=== PATIENT | female | born 1935 | race American Indian/Alaskan Native ===

== ENCOUNTER 2020-05-18 11:41 | Outpatient (CLI) | payer MEDICARE ==
--- NOTE | 2020-05-18 14:39 | Mammography Report ---
DIGITAL DIAGNOSTIC MAMMOGRAM WITH CAD CONVENTIONAL, 05/18/2020 CLINICAL INFORMATION / INDICATION: Postbiopsy clip placement TECHNIQUE: Digital right mammographic imaging was performed. This examination was interpreted with the benefit of Computer-aided Detection analysis. COMPARISON: None available FINDINGS: Breast Density: There are scattered areas of fibroglandular density. A huge lobular mass is partially imaged in the far posterior medial right breast at approximately 4:0 0 measuring at least 6.3 cm in diameter. A biopsy clip is seen within this mass. IMPRESSION: Huge right breast mass with biopsy clip Follow up recommendation: Per biopsy results Post biopsy imaging. A "normal" or negative report should not discourage follow up or biopsy of a clinically significant f inding. A written summary of these findings will be mailed to the patient. The patient will be entered into a mammography reporting system which will generate a reminder letter for the patient's next appointmen t at the appropriate interval. According to the [employer], yearly mammograms are recommended starting at age 40 and continuing as long as a woman is in good health. Breast MRI is recommended for women with an paula roximately 20-25% or greater lifetime risk of breast cancer, including women with a strong family his tory of breast or ovarian cancer and women who have been treated for Hodgkin's disease. Signer Name: Liang Adorno MD Signed: 05/18/2020 2:34 PM Workstation Name: [id number]
== END 2020-05-18 11:42 | disposition home or self-care (01) ==
LOC: SPVWC 11:41
PROVIDERS: ATTEND Surgery
DX: N63.10 Unspecified lump in the right breast, unspecified quadrant (principal); R92.2 Inconclusive mammogram; Z97.8 Presence of other specified devices

== ENCOUNTER 2020-05-19 08:37 | Outpatient (CLI) | payer MEDICARE | END 2020-05-19 08:38 | disposition home or self-care (01) | LOC: LABHHL 08:37 | PROVIDERS: ATTEND Surgery | DX: N63.14 Unspecified lump in the right breast, lower inner quadrant (principal); C50.311 Malignant neoplasm of lower-inner quadrant of right female breast | CPT/HCPCS: 88305; 88341; 88342 ==

== ENCOUNTER 2020-06-06 12:03 | Outpatient (CLI) | payer MEDICARE ==
--- NOTE | 2020-06-06 13:26 | Ultrasound Report ---
ULTRASOUND BREAST RIGHT COMPLETE, 06/06/2020 CLINICAL INFORMATION / INDICATION: ABNORMAL MAMMO. TECHNIQUE: Complete sonographic evaluation of all 4 quadrants and retroareolar region was performed. COMPARISON: Right breast mammogram 05/18/20. FINDINGS: There is a 6.3 cm lobulated, heterogeneous solid mass at the 3:00 position 5 cm from the nipple which corresponds to the site of the patient's palpable and mammographically detected mass. No posterior f eatures are seen. There is mild internal vascularity on Doppler exam. There is an associated biopsy c lip. There is a benign-appearing lymph node in the right axilla measuring 7.4 mm short axis. No cortical t hickening is seen. IMPRESSION: 6.3 cm heterogeneous solid mass in the right medial breast corresponds to the site of the patient's palpable and mammographically detected abnormality. Correlation with pathology is recommen ded. Follow up recommendation: Surgical consult BI-RADS Category 5: Highly Suggestive of Malignancy. A normal or "negative" report should not preclude biopsy or follow-up of a clinically suspicious find ing. Signer Name: Fernando Greene MD Signed: 06/06/2020 1:21 PM Workstation Name: [id number]
== END 2020-06-06 12:04 | disposition home or self-care (01) ==
LOC: SPVWC 12:03
PROVIDERS: ATTEND Surgery
DX: C50.411 Malignant neoplasm of upper-outer quadrant of right female breast (principal); N63.12 Unspecified lump in the right breast, upper inner quadrant

== ENCOUNTER 2020-07-07 13:40 | Outpatient (CLI) | payer MEDICARE ==
--- NOTE | 2020-07-07 16:06 | Mammography Report ---
DEXA BONE DENSITY SCAN INDICATION / CLINICAL INFORMATION: MALIGNANT NEOPLASM OF RIGHT BREAST. 85 years Female COMPARISON: None available. LUMBAR SPINE, L1-L4: - Bone mineral density (BMD) = 1.155 g/cm2. - T-score = 1.0 - Z-score = 3.8 Change (%) since most recent prior (if available): None available. LEFT HIP, NECK : - Bone mineral density (BMD) = 0.773 g/cm2. - T-score = -0.7 - Z-score = 1.8 Change (%) since most recent prior (if available): None available. IMPRESSION: 1. WHO Classification: Normal bone density. Fracture Risk: Not Increased. BMD Reporting Guidelines (ISCD, 2015) BMD Reporting in Postmenopausal Women and in Men Age 50 and Older * T-scores are preferred. * The WHO densitometric classification is applicable. BMD Reporting in Females Prior to Menopause and in Males Younger Than Age 50 * Z-scores, not T-scores, are preferred. This is particularly important in children. * A Z-score of -2.0 or lower is defined as below the expected range for age, and a Z-score above -2. 0 is within the expected range for age. * Osteoporosis cannot be diagnosed in men under age 50 on the basis of BMD alone. * The WHO diagnostic criteria may be applied to women in the menopausal transition. http://www.iscd.org/official-positions/8019-gyhf-zvpjkzhj-positions-adult/ Signer Name: Tate Berkowitz MD Signed: 07/07/2020 4:02 PM Workstation Name: [id number]
== END 2020-07-07 13:41 | disposition home or self-care (01) ==
LOC: SPVWC 13:40
PROVIDERS: ATTEND Internal Medicine Hematology & Oncology
DX: Z13.820 Encounter for screening for osteoporosis (principal); C50.311 Malignant neoplasm of lower-inner quadrant of right female breast; E11.9 Type 2 diabetes mellitus without complications; Z78.0 Asymptomatic menopausal state
CPT/HCPCS: 77080

== ENCOUNTER 2020-10-04 08:23 | Outpatient (CLI) | payer MEDICARE ==
--- NOTE | 2020-10-04 14:12 | Mammography Report ---
RIGHT DIGITAL DIAGNOSTIC MAMMOGRAM WITH CAD CONVENTIONAL, 10/04/2020 RIGHT COMPLETE BREAST ULTRASOUND CLINICAL INFORMATION / INDICATION: Patient presents for follow-up of known right breast cancer, on ch emotherapy. BREAST CA C50.312 TECHNIQUE: Digital right mammographic imaging was performed. Complete ultrasound of all four (4) quad rants was performed. This examination was interpreted with the benefit of Computer-Aided Detection (C AD) analysis. COMPARISON: Prior mammogram 05/18/2020 and right breast ultrasound 06/06/2020 FINDINGS: Breast Density: There are scattered areas of fibroglandular density. MAMMOGRAPHIC FINDINGS: There has been no significant change of a round mass in the posterior lower in ner quadrant of the right breast compatible with biopsy-proven malignancy, currently measuring up to 6.0 cm, previously 6.3 cm. No additional suspicious masses or calcification in the right breast. ULTRASOUND FINDINGS: Targeted ultrasound evaluation was performed of the area of interest. A round heterogeneous mass in the right breast 3:00 position located 5 cm from the nipple is not appreciably changed compared with prior examination, currently measuring up to approximately 5.5 x 3.8 x 5.5 cm, previously 6.3 x 4.2 x 4.3 cm. No additional suspicious lesions identified in the right breast. Morph ologically normal lymph nodes are seen in the right axilla. IMPRESSION: 1. A large mass compatible with biopsy-proven malignancy in the right breast is not significantly gatito nged compared with prior examination. Follow up recommendation: No recall. Continued follow-up as per Dr. Barrios. BI-RADS Category 6: Known Biopsy-Proven Malignancy. A "normal" or negative report should not discourage follow up or biopsy of a clinically significant f inding. A written summary of these findings will be mailed to the patient. The patient will be entered into a mammography reporting system which will generate a reminder letter for the patient's next appointmen t at the appropriate interval. According to the [employer], yearly mammograms are recommended starting at age 40 and continuing as long as a woman is in good health. Breast MRI is recommended for women with an paula roximately 20-25% or greater lifetime risk of breast cancer, including women with a strong family his tory of breast or ovarian cancer and women who have been treated for Hodgkin's disease. Signer Name: Scarlet Damian MD Signed: 10/04/2020 10:06 AM Workstation Name: [email or web address]
== END 2020-10-04 08:24 | disposition home or self-care (01) ==
LOC: SPVWC 08:23
PROVIDERS: ATTEND Surgery
DX: C50.312 Malignant neoplasm of lower-inner quadrant of left female breast (principal); N63.41 Unspecified lump in right breast, subareolar

== ENCOUNTER 2021-01-03 15:05 | Outpatient (CLI) | payer MEDICARE ==
--- NOTE | 2021-01-03 17:46 | Ultrasound Report ---
RIGHT DIGITAL DIAGNOSTIC MAMMOGRAM WITH CAD , 01/03/2021 RIGHT COMPLETE BREAST ULTRASOUND CLINICAL INFORMATION / INDICATION: Patient is currently receiving neoadjuvant chemotherapy for right breast cancer. This is a follow-up exam to assess response. TECHNIQUE: Digital right mammographic imaging was performed. Complete ultrasound of all four (4) quad rants was performed. This examination was interpreted with the benefit of Computer-Aided Detection (C AD) analysis. COMPARISON: Prior right mammogram and ultrasound 10/04/2020 FINDINGS: Breast Density: There are scattered areas of fibroglandular density. MAMMOGRAPHIC FINDINGS: There continues to be the presence of a large hyperdense mass in the lower inn er quadrant of the right breast, as noted on prior exams. Mammographically, there has not been a sign ificant interval change in size or appearance. A biopsy clip is visible within the mass. The remainde r of the right breast is unremarkable other than benign vascular calcifications. ULTRASOUND FINDINGS: Complete sonographic evaluation of all 4 quadrants and retroareolar region was p erformed. Sonographic evaluation of the right breast continues to demonstrate a large malignant mas s in the medial right breast measuring approximately 4.8 x 3.7 x 5.9 cm. This has shown some slight i nterval decrease in size compared with prior imaging studies. Morphologically normal lymph nodes are present within the right axilla. IMPRESSION: Biopsy-proven breast carcinoma in the medial right breast has decreased in size slightly since prior exam. On today's exam, the carcinoma measures 4.8 x 3.7 x 5.9 cm, previously having measu red 5.5 x 3.8 x 5.5 cm. Follow up recommendation: Continued surgical consultation. BI-RADS Category 6: Known Biopsy-Proven Malignancy. A "normal" or negative report should not discourage follow up or biopsy of a clinically significant f inding. A written summary of these findings will be mailed to the patient. The patient will be entered into a mammography reporting system which will generate a reminder letter for the patient's next appointmen t at the appropriate interval. According to the [employer], yearly mammograms are recommended starting at age 40 and continuing as long as a woman is in good health. Breast MRI is recommended for women with an paula roximately 20-25% or greater lifetime risk of breast cancer, including women with a strong family his tory of breast or ovarian cancer and women who have been treated for Hodgkin's disease. Signer Name: Inga Auguste MD Signed: 01/03/2021 5:42 PM Workstation Name: [id number]
== END 2021-01-03 15:06 | disposition home or self-care (01) ==
LOC: SPVWC 15:05
PROVIDERS: ATTEND Surgery
DX: C50.311 Malignant neoplasm of lower-inner quadrant of right female breast (principal); C50.312 Malignant neoplasm of lower-inner quadrant of left female breast

== ENCOUNTER 2021-01-31 06:23 | Day surgery (SDC) | payer MEDICARE ==
--- NOTE | 2021-01-24 15:36 | Anesthesia Consultation ---
Anesthesia Consult and Med Hx Date of service: 01/31/21 - Airway Anesthetic Teeth Evaluation: Dentures (Upper) ROM Head & Neck: Adequate Mental/Hyoid Distance: Adequate Mallampati Class: Class II Intubation Access Assessment: Good - Pre-Operative Health Status ASA Pre-Surgery Classification: ASA3 Proposed Anesthetic Plan: General Nerve Block: ES/PECS - Pulmonary Hx Smoking: No - Cardiovascular System Hx Hypertension: Yes (Cardiac records on chart reviewed) Hx Coronary Artery Disease: Yes - Central Nervous System Hx Psychiatric Problems: Yes (Anxiety) - Gastrointestinal Hx Gastroesophageal Reflux Disease: No - Endocrine Hx Renal Disease: Yes Hx End Stage Renal Disease: Yes Hx Non-Insulin Dependent Diabetes: Yes - Hematic Hx Sickle Cell Disease: No - Other Systems Hx Alcohol Use: No Hx Substance Use: No Hx Cancer: Yes Hx Obesity: No
[~2021-01-31 06:23] MED LIST: ACETAMINOPHEN 325 MG TAB PO NR; CELECOXIB 200 MG CAP PO NR; LACTATED RINGERS 1,000 ML IV SCH; MAGNESIUM OXIDE 400 MG TAB PO NR; MIDAZOLAM 2 MG/2 ML INJ IV NR; ceFAZolin/STERILE WATER 2 GM/20 ML SYRINGE IV NR; fentaNYL 100 MCG/2 ML INJ IV NR
[2021-01-31] MEDS ORDERED: propofoL 200 MG/20 ML VIAL IV ONE (07:11)
[2021-01-31] MEDS ORDERED: fentaNYL 100 MCG/2 ML INJ ONE (07:11)
[2021-01-31] MEDS ORDERED: LIDOCAINE MPF (2%) 20 MG/1 ML VIAL 5 ML ONE (07:11)
--- NOTE | 2021-01-31 07:23 | Anesthesia Day of Surgery ---
Anesthesia Day of Surgery - Day of Surgery Patient Examined: Yes Patient H&P Reviewed: Yes Patient is NPO: Yes Beta Blockers: Yes (metoprolol) Cardiac Clearance: Yes
[2021-01-31] MEDS ORDERED: BUPIVACAINE/PF (0.5%) 5 MG/1 ML 30 ML VIAL INFILTRATI ONE (07:32)
[2021-01-31] MEDS ORDERED: dexAMETHasone 4 MG/ML VIAL ONE (07:32)
[2021-01-31 07:45] LABS: Hematocrit 36.7 % (30.3-42.9); Mean Corpuscular HGB Conc 33 % (30-34); Mean Corpuscular Volume 93 fl (79-97); Platelet Count 158 K/mm3 (140-440); Red Blood Count 3.96 M/mm3 (3.65-5.03); Red Cell Distribution Width 14.9 % (13.2-15.2)
[2021-01-31] MEDS ORDERED: SODIUM CHLORIDE 0.9% 1000 ML 1,000 ML ONE (07:53)
[2021-01-31] MEDS ORDERED: ONDANSETRON 4 MG/2 ML INJ IV PRN (08:00)
[2021-01-31] MEDS ORDERED: SODIUM CHLORIDE 0.9% 1000 ML 1,000 ML IV SCH (08:00)
[2021-01-31] MEDS ORDERED: fentaNYL 100 MCG/2 ML INJ IV PRN (08:00)
[2021-01-31] MEDS ORDERED: ePHEDrine SULFATE 50 MG/1 ML INJ ONE (08:51)
[2021-01-31] MEDS ORDERED: BACITRACIN ZINC OINT 28.4 GM TP ONE (09:10)
[2021-01-31] MEDS ORDERED: LIDOCAINE (1%) 10 MG/1 ML VIAL 20 ML MDV ONE (09:10)
[2021-01-31] MEDS ORDERED: ONDANSETRON 4 MG/2 ML INJ ONE (09:14)
[2021-01-31] MEDS ORDERED: dexAMETHasone 20 MG/5 ML VIAL ONE (09:14)
[2021-01-31] MEDS ORDERED: LIDOCAINE (1%) 10 MG/1 ML VIAL 20 ML MDV INFILTRATI ONE ×2 (09:47)
[2021-01-31] MEDS ORDERED: WATER FOR IRRIG STERILE 1,500 ML BOTTLE IR ONE (09:47)
[2021-01-31] MEDS ORDERED: NEOMY 40 MG/POLYMYXIN B 200,000 UNITS/ML (GU) AMPULE IR ONE ×2 (10:22→10:42)
--- NOTE | 2021-01-31 11:40 | Short Stay Summary ---
Short Stay Documentation Date of service: 01/31/21 - History H&P: obtained from office - Allergies and Medications Current Medications: Allergies No Known Allergies Allergy (Verified 01/18/21 12:23) Home Medications Medication Instructions Recorded Confirmed Last Taken Type Anastrozole [Arimidex] 1 mg PO DAILY 01/18/21 01/18/21 01/30/21 History Aspirin [Aspirin BABY CHEW TAB] 81 mg PO QDAY 01/18/21 01/31/21 01/03/21 History AtorvaSTATin [Lipitor] 40 mg PO QHS 01/18/21 01/18/21 01/30/21 History Metoprolol [Lopressor TAB] 50 mg PO BID 01/18/21 01/31/21 01/31/21 05:45 History Sevelamer Carbonate [Renvela] 800 mg PO TIDWM 01/18/21 01/18/21 01/30/21 History amLODIPine 10 mg PO QHS 01/18/21 01/18/21 01/30/21 History cloNIDine [Catapres] 0.2 mg PO BID 01/18/21 01/31/21 01/31/21 05:45 History glipiZIDE [Glucotrol] 5 mg PO QDAY 01/18/21 01/18/21 01/30/21 History traMADoL [Ultram 50 MG tab] 50 mg PO Q6HR PRN #12 tablet 01/31/21 Unknown Rx Active Medications Acetaminophen (Acetaminophen 325 Mg Tab) 650 mg PO ONCE NR Stop: 01/31/21 20:00 Last Admin: 01/31/21 08:10 Dose: 650 mg Documented by: Cefazolin Sodium (Cefazolin/Sterile Water 2 Gm/20 Ml Syringe) 2 gm IV PREOP NR Stop: 01/31/21 23:59 Fentanyl (Fentanyl 100 Mcg/2 Ml Inj) 100 mcg IV ONCE NR Stop: 01/31/21 20:00 Last Admin: 01/31/21 08:10 Dose: 50 mcg Documented by: Fentanyl (Fentanyl 100 Mcg/2 Ml Inj) 50 mcg IV Q5MIN PRN PRN Reason: Pain , Severe (7-10) Stop: 01/31/21 21:00 Sodium Chloride (Nacl 0.9% 1000 Ml) 1,000 mls @ 42 mls/hr IV DIRECT PATSY Last Admin: 08/18/21 08:05 Dose: 42 mls/hr Documented by: Magnesium Oxide (Magnesium Oxide 400 Mg Tab) 400 mg PO ONCE NR Stop: 01/31/21 20:00 Last Admin: 01/31/21 08:10 Dose: 400 mg Documented by: Midazolam HCl (Midazolam 2 Mg/2 Ml Inj) 2 mg IV PREOP NR Stop: 01/31/21 23:59 Last Admin: 01/31/21 08:10 Dose: 1 mg Documented by: Ondansetron HCl (Ondansetron 4 Mg/2 Ml Inj) 4 mg IV ONCE PRN PRN Reason: Nausea And Vomiting Stop: 01/31/21 18:00 - Brief post op/procedure progress note Date of procedure: 01/31/21 Pre-op diagnosis: Right breast of lower inner quadrant Post-op diagnosis: same Procedure: Right partial mastectomy of the lower inner quadrant Anesthesia: GETA Findings: Mass and clip present within radiograph specimen Surgeon: DANYEL SO Estimated blood loss: minimal Pathology: list Specimen disposition: to lab Condition: stable - Disposition Condition at discharge: Good Disposition: 01 HOME / SELF CARE / HOMELESS Short Stay Discharge Plan Activity: other (no heavy lifting) Diet: renal Wound: keep clean and dry (may shower in 48 hours; wear breast binder; no baths, pools or lakes) Follow up with: DANYEL SO MD [Staff Physician] - 7 Days Prescriptions: traMADoL [Ultram 50 MG tab] 50 mg PO Q6HR PRN #12 tablet PRN Reason: Pain
--- NOTE | 2021-01-31 12:05 | Operative Report ---
Operative Report Operative Report: January 31, 2021 Preoperative diagnosis: Right breast cancer of the lower inner quadrant Postoperative diagnosis: Same Procedure: Right partial mastectomy of the lower inner quadrant and placement of BioZorb marker 2x3 cm Surgeon: Alyse Barrios MD Conservation Scientist: Abdirahman Lyle MD Anesthesia: General Findings: Right mass and clip present within radiograph specimen; placement of BioZorb marker 2x3 cm Complications: None EBL: Less than 50 cc Disposition: PACU in good condition Indications for operative procedure: This is an 85 year old lady with newly diagnosed right breast cancer of the lower inner quadrant, Stage IIA T3N0M0 ER/LA positive (5:00 position), IDCA with mucinous features grade 2. She was initially started on Anastrozole for right breast cancer of the lower inner quadrant at the 5 o'clock position close to the IMF measuring 6 x 5 x 5 cm. Patient was recently diagnosed with kidney failure and is currently undergoing hemodialysis 3 days a week. Patient was started on antihormonal therapy May 2020. Recent diagnostic imaging findings with slightly decreased size of known breast cancer malignancy. Patient wished to proceed with partial mastectomy. Given patient's age and medical comorbidities, sentinel node biopsy was not recommended. Recent imaging with no suspicious axillary lymph nodes and prior ultrasound findings of no suspicious axillary lymph nodes. She wished to proceed with breast conservation and understands the possibility of cosmesis with asymmetry given location of breast cancer and breast cancer size. She understands the role of adjuvant radiation therapy and Oncotype DX will be obtained by medical oncology. She wished to proceed with the above procedure. Procedure in detail: Anesthesia placed right pectoral block. Patient was then taken to the operating room. Gen. anesthesia was administered. Right breast and axilla were prepped and draped in the normal sterile operative fashion. Timeout was performed. Ultrasound used to emmanuel the area of incision. Tumor noted to be close to skin. Using a 22 guage spinal needle 12 cc of lidocaine was infiltrated at the skin to allow increase skin margin given tumor of close proximity to skin. A horizontal breast incision was made with 15 blade knife around 5:00 position with dissection taken down to subcutaneous tissues. First began raising of the superior flap with dissection taken superior past the area of known malignancy and then taken down to the pectoralis muscle, followed by raising of the inferior flap, medial flap and lateral flap with all flaps taken past the area of known malignancy and then posteriorly down to the pectoralis muscle. The breast area of concern was appropriately removed posteriorly from the pectoralis muscle with the aid of the Bovie cautery. Specimen was marked and then sent to pathology and radiology; radiograph specimen with wire and clip present. After the mass was removed from the pectoralis muscle, I was concerned of close margin of the anterior margin inferiorly with skin taken to ensure adequate margins (skin anterior the mass). Breast cavity was irrigated and hemostasis was obtained. Then proceeded with placement of BioZorb 2x3 cm marker lot [id number]. The posterior deep breast tissues were then mobilized to approximate and cover the area of the defect of at least 8 cm. The posterior deep breast tissues were approximated and closed using interrupted 3-0 Vicryl. The BioZorb of 3x2 centimeters was then sutured into place using interrupted 2-0 PDS, placing 4 sutures. Anterior breast tissue were then approximated and closed using interrupted 3-0 Vicryl. The BioZorb was not easily palpable. The subcutaneous tissues were then approximated and closed using interrupted 3-0 Vicryl followed by closing of the skin with a running 4-0 Monocryl and skin affix. The patient tolerated surgery very well and she was awaken from anesthesia without any complication and transported to PACU in good condition. Patient's hemodialysis catheter of right chest was protected as well.
[2021-01-31 12:33] VITALS: BP 148/74
--- NOTE | 2021-01-31 14:12 | Post Anesthesia Evaluation ---
- Post Anesthesia Evaluation Patient Participated: Yes Airway Patent: Yes Stable Respiratory Function: Yes Nausea/Vomiting: No Temp > 96.8F: Yes Pain Manageable: Yes Adequeate Hydration: Yes Anesthesia Complications: No
--- NOTE | 2021-02-02 13:23 | Mammography Report ---
RIGHT BREAST SPECIMEN RADIOGRAPH, 01/31/2021 INDICATION: Specimen radiograph. COMPARISON: 01/03/2021 TECHNIQUE / FINDINGS: SPECIMEN RADIOGRAPH: A specimen radiograph was x-rayed within the specimen there are 2 surgical clips . IMPRESSION: Radiographic evidence of satisfactory excision of the target lesion and clip. Signer Name: Devonte Spring DO Signed: 02/02/2021 1:18 PM Workstation Name: [place] [id number]
== END 2021-01-31 13:20 | disposition home or self-care (01) ==
LOC: OR 06:23
PROVIDERS: ATTEND Surgery
DX: C50.311 Malignant neoplasm of lower-inner quadrant of right female breast (principal); I12.0 Hypertensive chronic kidney disease with stage 5 chronic kidney disease or end stage renal disease; N18.6 End stage renal disease; E11.22 Type 2 diabetes mellitus with diabetic chronic kidney disease; E78.00 Pure hypercholesterolemia, unspecified; F41.9 Anxiety disorder, unspecified; Z99.2 Dependence on renal dialysis; Z79.82 Long term (current) use of aspirin; Z79.899 Other long term (current) drug therapy; Z98.890 Other specified postprocedural states; Z20.822 Contact with and (suspected) exposure to COVID-19
CPT/HCPCS: 19302; 36415; 64450; 76098; 80048; 82962; 85027; 88304; 88305; 88307; A4648; J0690; J1100; J2250; J2405; J2704; J3010; J7030; J7120; U0003